=== PATIENT | male | born 1995 | race African-American/Black ===

== ENCOUNTER 2017-01-08 19:37 | Emergency (ER) | payer MEDICAID ==
[~2017-01-08] VITALS: Ht 188 cm; Wt 72.6 kg
[2017-01-08 20:04] VITALS: BP 134/73
== END 2017-01-08 22:42 | disposition left against medical advice (07) ==
LOC: ER 20:05
DX: S01.81XA Laceration without foreign body of other part of head, initial encounter (principal); Z53.21 Procedure and treatment not carried out due to patient leaving prior to being seen by health care provider; Y08.89XA Assault by other specified means, initial encounter; Y93.89 Activity, other specified; Y99.8 Other external cause status; Y92.89 Other specified places as the place of occurrence of the external cause
CPT/HCPCS: 70450; 70486; 72125